=== PATIENT | male | born 1940 | race Caucasian/White ===

== ENCOUNTER 2021-09-13 11:23 | Emergency (ER) | payer OTHER, MEDICARE, SELFPAY ==
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
[2021-09-13 11:32] VITALS: BP 181/77; PULSE 66; RESP 17; TEMP 36.4; O2SAT 97
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
[2021-09-13 13:08] VITALS: BP 186/102; PULSE 75; RESP 16
[2021-09-13] MEDS: MORPHINE SULFATE (*CRX) 4 MG/ML INJ IV PUSH (13:15)
[2021-09-13 13:16] VITALS: BP 186/102; PULSE 70; RESP 18; O2SAT 97
== END 2021-09-13 14:41 | disposition short-term general hospital (02) ==
PROVIDERS: Emergency Provider Emergency Medicine
DX: S12.000A Unspecified displaced fracture of first cervical vertebra, initial encounter for closed fracture (principal); S12.100A Unspecified displaced fracture of second cervical vertebra, initial encounter for closed fracture; V89.0XXA Person injured in unspecified motor-vehicle accident, nontraffic, initial encounter; Y92.481 Parking lot as the place of occurrence of the external cause
CPT/HCPCS: 70450; 72125; 96365; 96375; 99285; J0131; J2270